=== PATIENT | female | born 1960 | race Two or more races ===

== ENCOUNTER 2018-01-25 09:06 | Emergency (ER) | payer SELFPAY ==
[2018-01-25 09:20] VITALS: TEMP 98.3; BMI 35.4
[2018-01-25] MEDS ORDERED: KETOROLAC TROMETHAMINE 30 MG/1 ML VIAL IVPUSH ONE (09:55)
[2018-01-25] MEDS ORDERED: KETOROLAC TROMETHAMINE 30 MG/1 ML VIAL ONE (10:02)
--- NOTE | 2018-01-25 10:08 | PDOC ---
History of Present Illness - General Chief Complaint: Back Pain Stated Complaint: BACK PAIN Time Seen by Provider: 01/25/18 09:45 History Source: Patient Exam Limitations: No Limitations - History of Present Illness Initial Comments: 01/25/18 10:00 The patient is a 57F with no PMH who presents to the ER with multiple complaints. The patient is complaining of a headache x 3 days which she describes as "needles" which wrap around her head. She tried taking tylenol for her headache and states it relieved her pain "a little bit" but the headache returned. The patient also states she has L flank pain x 1 day which she describes as similar to her previous kidney stones. She describes a sharp pain in her L flank that is constant, and she cannot find a comfortable position. Denies hematuria and dysuria. She also describes L leg pain which has been going on for 1 week. She states that yesterday she felt palpitations. She denies any fever, chills, neck stiffness, photophobia, CP, SOB, nausea, vomiting. Past History - Past Medical History Allergies/Adverse Reactions: Allergies Allergy/AdvReac Type Severity Reaction Status Date / Time No Known Allergies Allergy Verified 01/25/18 09:15 Home Medications: Ambulatory Orders NK [No Known Home Medication] 01/25/18 CVA: No COPD: No DVT: No Dementia: No - Immunization History Immunization Up to Date: Yes - Suicide/Smoking/Psychosocial Hx Smoking History: Never smoked Have you smoked in the past 12 months: No If you are a former smoker, when did you quit?: 1YR Information on smoking cessation initiated: No Hx Alcohol Use: No Drug/Substance Use Hx: No Substance Use Type: None Review of Systems - Review of Systems Able to Perform ROS?: Yes Comments:: 01/25/18 10:19 GENERAL/CONSTITUTIONAL: No fever or chills. No weakness. HEAD, EYES, EARS, NOSE AND THROAT: No change in vision. No ear pain or discharge. No sore throat. CARDIOVASCULAR: Positive for palpitations. No chest pain or lightheadedness. RESPIRATORY: No cough, wheezing, shortness of breath, or hemoptysis. GASTROINTESTINAL: No nausea, vomiting, diarrhea, constipation, or abdominal pain. GENITOURINARY: Positive for L flank pain. No dysuria, frequency, hematuria, or change in urination. MUSCULOSKELETAL: Positive for L leg pain. No joint or muscle swelling or pain. No neck or back pain. SKIN: No rash or lesions. NEUROLOGIC: Positive for headache. No numbness, tingling, weakness, loss of consciousness, or change in strength/sensation. ENDOCRINE: No increased thirst. No abnormal weight change. HEMATOLOGIC/LYMPHATIC: No anemia, easy bleeding, or history of blood clots. ALLERGIC/IMMUNOLOGIC: No hives or skin allergy. 01/25/18 10:27 Is the patient limited [place]anian proficient: No *Physical Exam - Vital Signs Last Vital Signs Temp Pulse Resp BP Pulse Ox 98.3 F 90 16 116/82 96 01/25/18 09:15 01/25/18 09:15 01/25/18 09:15 01/25/18 09:15 01/25/18 09:15 - Physical Exam Comments: 01/25/18 10:21 GENERAL: Well developed, well nourished. Awake and alert. No acute distress. HEENT: Normocephalic, atraumatic. Hearing grossly normal. Moist mucous membranes. PERRLA, EOMI. No conjunctival pallor. Sclera are non-icteric. NECK: Supple. Full ROM. CARDIOVASCULAR: Regular rate and rhythm. No murmurs, rubs, or gallops. PULMONARY: No evidence of respiratory distress. Lungs clear to auscultation bilaterally. No wheezing, rales or rhonchi. ABDOMINAL: Soft. Non-tender. Non-distended. No rebound or guarding. No organomegaly. Normoactive bowel sounds. GENITOURINARY: No CVA tenderness bilaterally. MUSCULOSKELETAL: Normal range of motion at all joints. No bony deformities or tenderness. EXTREMITIES: No cyanosis. No clubbing. No edema. No calf tenderness. SKIN: Warm and dry. Normal capillary refill. No rashes. No jaundice. NEUROLOGICAL: Alert, awake, appropriate. Cranial nerves 2-12 intact. No deficits to light touch and temperature in face, upper extremities and lower extremities. No motor deficits in the in face, upper extremities and lower extremities. Normoreflexic in the upper and lower extremities. Normal speech. Gait is normal without ataxia. PSYCHIATRIC: Cooperative. Good eye contact. Appropriate mood and affect. ED Treatment Course - LABORATORY CBC & Chemistry Diagram: 01/25/18 10:15 01/25/18 10:15 Medical Decision Making - Medical Decision Making 01/25/18 10:21 The patient is a 57F with no PMH who presents to the ER with multiple complaints. The patient's headache is likely a tension headache as she has a normal neurologic exam and no neck stiffness or fever in our facility. Pt has a negative straight leg raise and no flank pain but does state she has a hx of nephrolithiasis. Pending labs and will image her LS spine. 01/25/18 11:14 CBC and CMP WNL. Trop negative. XR Negative. Pending UA. 01/25/18 11:44 UA negative. Pt states she feels better. Will d/c with f/u at resident clinic. Appointment made at bedside. *DC/Admit/Observation/Transfer Diagnosis at time of Disposition: Back pain Qualifiers: Back pain location: low back pain Chronicity: acute Back pain laterality: left Sciatica presence: with sciatica Sciatica laterality: sciatica of left side Qualified Code(s): M54.42 - Lumbago with sciatica, left side - Discharge Dispostion Disposition: HOME Condition at time of disposition: Stable Decision to Admit order: No - Referrals Referrals: Sher Engel MD [Staff Physician] - Aaron Carey MD [Staff Physician] - - Patient Instructions Printed Discharge Instructions: Low Back Pain Additional Instructions: Please follow up with the primary care physician in 2-3 days. Please return to the ER if you have any signs or symptoms of chest pain, shortness of breath, uncontrollable fever, chills, nausea, vomiting, numbness, tingling, or weakness in any part of your body, changes in vision, or slurred speech. Please take your medications as prescribed. Please return to the ER if symptoms persist, worsen, or new symptoms arise. Por favor dayana un seguimiento con el mdico de atencin primaria en 2-3 lugo. Por favor regrese a la adrian de emergencia si tiene signos o sntomas de dolor en el pecho, dificultad para respirar, fiebre incontrolable, escalofros, n useas, vmitos, entumecimiento, hormigueo o debilidad en cualquier parte de brunner cuerpo, cambios en la visin o dificultad para hablar. Por favor tome angeles medicamentos segn lo recetado. Por favor regrese a la adrian de emergencias si los sntomas persisten, empeoran o surgen nuevos sntomas. Print Language: HUNGARIAN - Post Discharge Activity
[2018-01-25 10:20] LABS: BASO % 0.8 % (0-2.0); EOS % 0.4 % (0-4.5); HEMATOCRIT 37.7 % (32.4-45.2); HEMOGLOBIN 13.1 GM/dL (10.7-15.3); LYMPH % 27.9 % (8-40); MCH 31.4 pg (25.7-33.7); MCHC 34.9 g/dl (32.0-36.0); MEAN PLT VOLUME 7.3 fl (7.5-11.1); MONO % 9.5 % (3.8-10.2); NEUT % 61.4 % (42.8-82.8); PLATELET COUNT 229 K/MM3 (134-434); RBC 4.19 M/mm3 (3.60-5.2); RDW 13.4 % (11.6-15.6); WHITE BLOOD COUNT 5.7 K/mm3 (4.0-10.0)
--- NOTE | 2018-01-25 10:43 | PDOC ---
Attending Attestation - HPI HPI: 01/25/18 10:43 The patient is a 57 year old female, with no significant PMH, who presents to the emergency department with multiple complaints. The patient states that she has had an intermittent headache for 3 days described as a sharp sensation. The patient states she takes Tylenol for the headache with mild relief but the headache returns. She denies any fever, chills, neck stiffness. As per the patients second complaint, she states she has had left lower extremity pain for 2 weeks that is made worse with ambulation and alleviated with rest. The patient states that beginning last night she has had left flank pain that radiates down her left lower extremity down to her toes. The patient states the left flank pain and left lower extremity pain now feels like one pain. The patient denies any recent injuries, trauma, weakness, numbness, tingling or loss of sensation. She denies any recent weight loss or bowel or bladder incontinence. The patient also reports a brief episode of palpitations yesterday. The patient denies chest pain, leg swelling, calf tenderness, shortness of breath, lightheadedness and dizziness. Denies fever, chills, nausea, vomit, diarrhea and constipation. Denies dysuria, frequency, urgency and hematuria. Allergies: NKA Past surgical history: None reported. 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 Social history: Quit smoking 1 year ago. PCP: None reported. - Physicial Exam PE: 01/25/18 10:46 Vitals: Triage vital signs reviewed General Appearance: No acute distress, well nourished, well developed Head: Atraumatic Eyes: Pupils equal reactive round, extraocular movement intact Ears: TM's normal bilaterally Nose: Nares patent bilaterally; no nasal congestion Throat: Posterior oropharynx without erythema, mucous membranes moist Neck: Supple; No nuchal rigidity Chest Wall: Nontender Cardiac: Regular rate and rhythm, no murmurs, no rubs, no gallops Lungs: Clear to auscultation bilateral, good air movement bilaterally Back: (+) Lumbar and left lower spinal tenderness. Abdomen: Soft, nondistended, nontender to palpation Rectal: Exam deferred Extremities: Full range of motion to all extremities, no cyanosis, clubbing, or edema Skin: Warm and dry, no rashes or lesions, no rash, no petechiae Neuro: AOX3; Cranial Nerves 2-12 grossly intact, Strength intact to all extremities, Sensation intact to all extremities, gait normal Psych: Normal mood, normal affect - Medical Decision Making 01/25/18 10:46 The patient is a 57 year old female, with no significant PMH, who presents to the emergency department with 3 days of intermittent headache, 2 weeks of intermittent left lower extremity pain, 1 day of left flank pain and an episode of palpitations yesterday. Plan: EKG, Troponin, Labs/ blood work, Medications, Lumbar spine x-ray. Documentation prepared by Axel Kennedy, acting as medical and health services manager for Mervin Adams MD. <Axel Kennedy - Last Filed: 01/25/18 10:43> - Resident Resident Name: Lucho Blackwell - ED Attending Attestation I have performed the following: I have examined & evaluated the patient, The case was reviewed & discussed with the resident, I agree w/resident's findings & plan, Exceptions are as noted - Medical Decision Making History examination most likely with low back discomfort and mild sciatica. No meningeal signs on exam intermittent headache currently with no headache Labs within normal limits repeat neurologic exam normal no weakness no numbness to bowel bladder incontinence patient feels better after Toradol no significant acute findings on lumbar spine x-ray. Patient provided with orthopedic follow-up Findings, the need for follow-up and strict return instructions discussed with patient. <Mervin Adams - Last Filed: 01/25/18 18:51> Heart Score/ECG Review - ECG Impressions Comment:: 01/25/18 18:49 EKG performed at 1024. And strict sinus rhythm 80 bpm. SD 152, QRS 88, QTC 427. No ST elevations or T-wave inversions Interpreted by me. <Mervin Adams - Last Filed: 01/25/18 18:51>
[2018-01-25 10:46] LABS: ALBUMIN 3.7 g/dl (3.4-5.0); ANION GAP 4 (8-16); BILIRUBIN,TOTAL 0.4 mg/dL (0.2-1.0); BLOOD UREA NITROGEN 18 mg/dL (7-18); CALCIUM 8.9 mg/dL (8.5-10.1); CHLORIDE 106 mmol/L (98-107); CO2 31 mmol/L (21-32); CREATININE 0.8 mg/dL (0.55-1.02); GLUCOSE,RANDOM 123 mg/dL (74-106); SGPT/ALT 62 U/L (12-78); SODIUM 141 mmol/L (136-145); TOT PROT 7.5 g/dl (6.4-8.2)
[2018-01-25 10:49] LABS: ALK PHOS 100 U/L (45-117)
[2018-01-25 10:50] LABS: POTASSIUM 4.9 mmol/L (3.5-5.1); SGOT/AST 33 U/L (15-37)
[2018-01-25 11:13] LABS: URINE APPEARANCE CLEAR; URINE BILIRUBIN NEGATIVE (<2.0 mg/dL); URINE COLOR STRAW; URINE GLUCOSE (UA) NEGATIVE (NEGATIVE); URINE KETONE NEGATIVE (NEGATIVE); URINE LEUK ESTERASE NEGATIVE (NEGATIVE); URINE NITRITE NEGATIVE (NEGATIVE); URINE PROTEIN NEGATIVE (NEGATIVE); URINE UROBILINOGEN NEGATIVE mg/dL (0.2-1.0)
[2018-01-25 11:31] LABS: EPI CELLS RARE /HPF (FEW); URINE BACTERIA RARE /hpf (NONE SEEN); URINE MUCUS RARE
[2018-01-25 11:52] VITALS: BP 134/77; PULSE 78
--- NOTE | 2018-01-26 08:21 | EKG ---
Test Reason : Blood Pressure : / mmHG Vent. Rate : 083 BPM Atrial Rate : 083 BPM P-R Int : 152 ms QRS Dur : 088 ms QT Int : 364 ms P-R-T Axes : 062 052 029 degrees QTc Int : 427 ms NORMAL SINUS RHYTHM POSSIBLE LEFT ATRIAL ENLARGEMENT BORDERLINE ECG NO PREVIOUS ECGS AVAILABLE Confirmed by OLGA GARDUNO, CHE ([id number]) on 01/26/2018 8:20:55 AM Referred By: Confirmed By:CHE ESPINOZA MD
== END 2018-01-25 11:52 | disposition home or self-care (01) ==
LOC: JER 09:06
PROC: 3E0333Z Introduction of Anti-inflammatory into Peripheral Vein, Percutaneous Approach (ICD-10-PCS; principal; 2018-01-25)
DX: M54.42 Lumbago with sciatica, left side (principal)
CPT/HCPCS: 36415; 72100-TC-FY; 80053; 81003; 81015; 82550; 82553; 84484; 85025; 93005; 93010; 99282-25